=== PATIENT | male | born 1970 | race Hispanic/Latino ===

== ENCOUNTER 2022-04-30 17:54 | Inpatient (IN) | payer OTHER ==
[~2022-04-30] VITALS: Ht 165.1 cm; Wt 67.5 kg
[2022-04-30] MEDS ORDERED: IPRATROPIUM/ALBUTEROL SULFATE 3 ML SOLUTION IH STA (18:41)
[2022-04-30 18:58] LABS: BASOPHILS % (AUTO) 0.1 % (0.0-5.0); LYMPHOCYTES % (AUTO) 4.6 % (21.0-51.0); MEAN CORPUSCULAR HEMOGLOBIN 30.3 pg (27.0-33.0); MEAN CORPUSCULAR HGB CONC 30.3 g/dL (32.0-36.0); MONOCYTES % (AUTO) 3.5 % (3.0-13.0); NEUTROPHILS % (AUTO) 90.6 % (40.0-77.0); NUCLEATED RED BLOOD CELLS 0.4 % (0.0-0.19); PLATELET COUNT (AUTO) 145 K/uL (130-400); RED CELL DISTRIBUTION WIDTH 17.2 % (11.0-15.5); WHITE BLOOD COUNT (AUTO) 10.7 K/uL (4.8-10.8)
[2022-04-30] MEDS ORDERED: SOLU-MEDROL 125MG VIAL IVP ONE ×2 (19:00→23:00)
[2022-04-30] MEDS ORDERED: NITROGLYCERIN 0.4 MG SL TAB SL PRN (19:00)
[2022-04-30] MEDS ORDERED: NITROGLYCERIN 1GM OINT 1 INCH/1GM TD STA (19:41)
[2022-04-30] MEDS ORDERED: NITROGLYCERIN 30 GM TUBE TD ONE (20:00)
[2022-04-30] MEDS ORDERED: HEPARIN 25,000 UNITS/250ML D5W 250 ML IV PRN (20:00)
[2022-04-30] MEDS ORDERED: NITROGLYCERIN 1GM OINT 1 INCH/1GM TD ONE (20:00)
[2022-04-30] MEDS ORDERED: ASPIRIN 325MG TAB PO ONE (20:00)
[2022-04-30] MEDS ORDERED: ASPIRIN 81MG CHEW TAB PO ONE (20:00)
[2022-04-30 20:51] LABS: PROTHROMBIN TIME 10.9 SEC (9.6-11.6)
[2022-04-30] MEDS ORDERED: FURO20TA4 PO (20:51)
[2022-04-30] MEDS ORDERED: PRED20TA3 PO (20:51)
[2022-04-30] MEDS ORDERED: ATOR40TA69 PO (20:51)
[2022-04-30] MEDS ORDERED: ISOS20TA85 PO (20:51)
[2022-04-30] MEDS ORDERED: METO50TA18 PO (20:51)
[2022-04-30] MEDS ORDERED: PANT40TA54 PO (20:51)
[2022-04-30] MEDS ORDERED: ASPI-1197 PO (20:51)
[2022-04-30 20:52] LABS: PARTIAL THROMBOPLASTIN TIME 28.1 SEC (26.3-35.5)
[2022-04-30 20:54] LABS: ALBUMIN 2.6 g/dL (3.5-5.0); CREATININE 4.3 mg/dL (0.5-1.5); TOTAL PROTEIN, SERUM 6.4 g/dL (6.0-8.3)
[2022-04-30] MEDS ORDERED: MAGNESIUM 2GM PREMIX 50ML 50 ML IV PRN (21:00)
[2022-04-30] MEDS ORDERED: IPRATROPIUM/ALBUTEROL SULFATE 3 ML SOLUTION IH PRN (21:00)
[2022-04-30] MEDS: NITROGLYCERIN 1GM OINT 1 INCH/1GM TD SCH (21:00)
[2022-04-30] MEDS ORDERED: ACETAMINOPHEN 325 MG TAB PO PRN (21:00)
[2022-04-30] MEDS ORDERED: POTASSIUM CHLORIDE 20MEQ/100ML 100 ML IV PRN (21:00)
[2022-04-30] MEDS ORDERED: KCL 20 MEQ ERTAB PO PRN (21:00)
[2022-04-30] MEDS ORDERED: LIDOCAINE HCL-MPF 1% 2ML VIAL IV PRN (21:00)
[2022-04-30] MEDS ORDERED: MORPHINE 4 MG SYG IV PRN (21:00)
[2022-04-30] MEDS ORDERED: GUAIFENESIN-DM 200/20 MG 10 ML PO PRN (21:00)
[2022-04-30] MEDS ORDERED: LACTATED RINGERS 1000ML 1,000 ML IV SCH (21:00)
[2022-04-30] MEDS ORDERED: POTASSIUM CHLORIDE 10% ELIXIR 20 MEQ/15 ML UDCUP PO PRN (21:00)
[2022-04-30] MEDS ORDERED: ONDANSETRON 4MG INJ IV PRN (21:00)
[2022-04-30] MEDS ORDERED: CEFTRIAXONE 1G VIAL IV SCH (21:00)
[2022-04-30] MEDS ORDERED: HEPARIN 5,000 UNIT VIAL ONE (21:01)
[2022-04-30] MEDS: DOXYCYCLINE 100MG+NS 250ML 250 ML IV SCH (22:03)
[2022-04-30 22:30] LABS: ABG OXYGEN SATURATION 93.6 % (95.0-99.0); ABG PCO2 33 mmHg (35-48)
[2022-04-30] MEDS ORDERED: SODIUM BICARB 50MEQ 50ML VIAL 50 ML ONE (22:46)
[2022-04-30] MEDS ORDERED: CALCIUM GLUC 1GM/10ML VIAL ONE (22:46)
[2022-04-30] MEDS ORDERED: DEXTROSE 50%-WATER 50 ML DISP.SYRIN IV ONE (22:47)
[2022-04-30] MEDS ORDERED: 0.9%NACL 1000ML 1,845 ML IV ONE (23:00)
[2022-04-30] MEDS ORDERED: SODIUM BICARB 50MEQ 50ML VIAL 150 MEQ in DEXTROSE 5%-WATER 1,000 ML IV ONE (23:00)
[2022-04-30] MEDS ORDERED: INSULIN HUMULIN R 100 UNIT/ML 3ML IV ONE (23:00)
[2022-04-30] MEDS ORDERED: DEXTROSE 50%-WATER 25 GM/50 ML VIAL IV ONE (23:00)
[2022-04-30] MEDS ORDERED: SODIUM BICARB 50MEQ 50ML VIAL 150 MEQ in DEXTROSE 5%-WATER 1,000 ML IV SCH (23:00)
[2022-04-30] MEDS ORDERED: CALCIUM GLUC 1GM 1 GM in 0.9%NACL 100ML 100 ML IV ONE (23:00)
[2022-04-30] MEDS ORDERED: PHARMACY COMMUNICATION MISC SCH (23:00)
[2022-04-30] MEDS ORDERED: ALBUTEROL 0.083% 2.5 MG/3 ML INH IH SCH (23:00)
[2022-04-30] MEDS ORDERED: SODIUM BICARB 50MEQ 50ML VIAL 150 ML ONE (23:33)
[2022-05-01] VITALS (50 sets, daily range): BP systolic 109–179; BP diastolic 65–97
[2022-05-01] MEDS ORDERED: NITROGLYCERIN 0.4 MG SL TAB SL PRN
[2022-05-01] MEDS: SOLU-MEDROL 40MG VIAL IVP SCH ×3 (00:59→13:31)
[2022-05-01] MEDS: NA ZIRCON CYCLOSIL(LOKELMA 10GM) PO ONE ×2 (00:59→01:00)
[2022-05-01] MEDS ORDERED: SODIUM BICARB 50MEQ 50ML VIAL IV SCH (01:00)
[2022-05-01] MEDS ORDERED: NITROGLYCERIN 50MG/D5W 250ML 250 BOT IV PRN (01:00)
[2022-05-01 02:14] LABS: ABG BASE EXCESS -13.6 mmol/L (-2.0-3.0); ABG OXYGEN SATURATION 94.3 % (95.0-99.0); ABG PCO2 39 mmHg (35-48)
[2022-05-01] MEDS: IPRATROPIUM 0.5 MG/2.5 ML INH IH SCH ×3 (02:32→11:23)
[2022-05-01] MEDS: ALBUTEROL 0.083% 2.5 MG/3 ML INH IH SCH ×2 (02:32→06:20)
[2022-05-01] MEDS ORDERED: SODIUM BICARB 50MEQ 50ML VIAL IV ONE (03:00)
[2022-05-01] MEDS ORDERED: IPRATROPIUM/ALBUTEROL SULFATE 3 ML SOLUTION IH SCH (03:00)
[2022-05-01 04:02] LABS: CREATININE 3.9 mg/dL (0.5-1.5); MAGNESIUM 1.2 mg/dL (1.80-2.40); PHOSPHORUS 5.2 mg/dL (2.5-4.9); POTASSIUM 4.7 mmol/L (3.5-5.1)
[2022-05-01 04:34] LABS: % IRON SATURATION 78.1 % (30-44)
[2022-05-01 04:36] LABS: LYMPHOCYTES % (AUTO) 1.5 % (21.0-51.0); MEAN CORPUSCULAR HEMOGLOBIN 30.3 pg (27.0-33.0); MEAN CORPUSCULAR HGB CONC 31.8 g/dL (32.0-36.0); MEAN CORPUSCULAR VOLUME 95.2 fL (79-99); MONOCYTES % (AUTO) 2.5 % (3.0-13.0); PLATELET COUNT (AUTO) 112 K/uL (130-400); RED BLOOD CELL COUNT(AUTO) 2.31 MIL/uL (4.50-6.20); RED CELL DISTRIBUTION WIDTH 17.1 % (11.0-15.5); WHITE BLOOD COUNT (AUTO) 9.7 K/uL (4.8-10.8)
[2022-05-01] MEDS: NITROGLYCERIN 1GM OINT 1 INCH/1GM TD SCH ×2 (06:33→13:31)
[2022-05-01 06:47] LABS: ABG BASE EXCESS -5.5 mmol/L (-2.0-3.0); ABG HCO3 20.5 mmol/L (21.0-28.0); ABG OXYGEN SATURATION 95.1 % (95.0-99.0); ABG PCO2 43 mmHg (35-48)
[2022-05-01] MEDS: MORPHINE 2 MG SYG IV PRN ×2 (07:48→11:14)
[2022-05-01] MEDS: DOXYCYCLINE 100MG+NS 250ML 250 ML IV SCH (07:48)
[2022-05-01] MEDS ORDERED: CALCIUM GLUC 1GM 1 GM in 0.9%NACL 100ML 100 ML IV SCH (08:00)
[2022-05-01] MEDS ORDERED: NICOTINE 14 MG/ 24 HR PATCH TD SCH (09:00)
[2022-05-01] MEDS ORDERED: EPOETIN ALFA-EPBX (NON-ESRD) 10,000 UNIT/ML VIAL SQ SCH (09:00)
[2022-05-01] MEDS ORDERED: ASPIRIN 81MG CHEW TAB PO SCH (09:00)
[2022-05-01] MEDS ORDERED: METOPROLOL TARTRATE 50 MG TAB PO SCH (09:00)
[2022-05-01] MEDS ORDERED: PANTOPRAZOLE 40 MG/VIAL IVP SCH ×2 (09:00→21:00)
[2022-05-01] MEDS ORDERED: FAMOTIDINE 20MG TAB PO SCH (09:00)
[2022-05-01] MEDS ORDERED: METOPROLOL TARTRATE 1 MG/ML 5ML VIAL IV ONE (10:30)
[2022-05-01 10:31] LABS: MEAN CORPUSCULAR HEMOGLOBIN 30.6 pg (27.0-33.0); MEAN CORPUSCULAR HGB CONC 32.2 g/dL (32.0-36.0); RED BLOOD CELL COUNT(AUTO) 2.19 MIL/uL (4.50-6.20); WHITE BLOOD COUNT (AUTO) 6.7 K/uL (4.8-10.8)
[2022-05-01 10:35] LABS: HEMATOCRIT 20.8 % (42-54)
[2022-05-01] MEDS ORDERED: MEROPENEM 1 GM VIAL IVPB SCH (11:00)
[2022-05-01] MEDS ORDERED: ATORVASTATIN 40 MG TABLET PO SCH (21:00)
== END 2022-05-01 17:20 | disposition left against medical advice (07) | DRG 871 ==
LOC: EDH 17:54 → EDHIP 17:55 → 2CH 05-01 00:20
PROVIDERS: ADMIT Internal Medicine; ATTEND Internal Medicine
PROC: 30233N1 Transfusion of Nonautologous Red Blood Cells into Peripheral Vein, Percutaneous Approach (ICD-10-PCS; principal; 2022-05-01)
PROC: 5A09357 Assistance with Respiratory Ventilation, Less than 24 Consecutive Hours, Continuous Positive Airway Pressure (ICD-10-PCS; 2022-05-01)
DX: A41.9 Sepsis, unspecified organism (principal); G93.41 Metabolic encephalopathy; J96.90 Respiratory failure, unspecified, unspecified whether with hypoxia or hypercapnia; I21.4 Non-ST elevation (NSTEMI) myocardial infarction; Z20.822 Contact with and (suspected) exposure to COVID-19; J69.0 Pneumonitis due to inhalation of food and vomit; J44.0 Chronic obstructive pulmonary disease with (acute) lower respiratory infection; E87.20 Acidosis, unspecified; I13.0 Hypertensive heart and chronic kidney disease with heart failure and stage 1 through stage 4 chronic kidney disease, or unspecified chronic kidney disease; N17.9 Acute kidney failure, unspecified; E87.0 Hyperosmolality and hypernatremia; N18.9 Chronic kidney disease, unspecified; I50.9 Heart failure, unspecified; D64.9 Anemia, unspecified; W18.39XA Other fall on same level, initial encounter; E11.22 Type 2 diabetes mellitus with diabetic chronic kidney disease; E66.9 Obesity, unspecified; E78.00 Pure hypercholesterolemia, unspecified; E87.5 Hyperkalemia; F17.200 Nicotine dependence, unspecified, uncomplicated; I25.10 Atherosclerotic heart disease of native coronary artery without angina pectoris; Z93.3 Colostomy status; Z91.199 Patient's noncompliance with other medical treatment and regimen due to unspecified reason; Z79.82 Long term (current) use of aspirin; Z79.4 Long term (current) use of insulin; Y93.89 Activity, other specified; Y92.89 Other specified places as the place of occurrence of the external cause; Y99.8 Other external cause status; Z68.24 Body mass index [BMI] 24.0-24.9, adult
CPT/HCPCS: 36415; 36430; 36600; 71045; 76770; 80048; 80053; 80305; 82140; 82435; 82803; 82947; 83540; 83550; 83605; 83735; 83880; 84100; 84132; 84145; 84295; 84484; 85018; 85025; 85027; 85610; 85730; 86850; 86900; 86901; 86923; 87040; 87635; 87804; 92610; 93005; 93306; 93356; 93971; 94640; 94660; 94664; 96365; 96375; C9113; G0378; J0610; J0696; J1644; J1815; J2185; J2270; J2920; J2930; J3475; J3490; J7030; J7070; P9016